=== PATIENT | male | born 1965 | race American Indian/Alaskan Native ===

== ENCOUNTER 2017-02-01 14:15 | Emergency (ER) | payer OTHER ==
[2017-02-01 14:31] VITALS: BP 133/79
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
== END 2017-02-01 21:17 | disposition home or self-care (01) ==
LOC: ED 14:15
DX: S39.011A Strain of muscle, fascia and tendon of abdomen, initial encounter (principal); V49.3XXA Car occupant (driver) (passenger) injured in unspecified nontraffic accident, initial encounter; Y93.89 Activity, other specified; Y92.89 Other specified places as the place of occurrence of the external cause; Y99.8 Other external cause status
CPT/HCPCS: 74020; 99283